=== PATIENT | male | born 1975 | race Caucasian/White ===

== ENCOUNTER 2018-08-18 22:53 | Emergency (ER) | payer OTHER ==
[~2018-08-18] VITALS: Ht 195.6 cm; Wt 122.5 kg
[~2018-08-18 22:53] MED LIST: PREDNISONE50 MG PO
[2018-08-18] MEDS ORDERED: ZYRTEC10 M5 PO (23:03)
[2018-08-18] MEDS ORDERED: GARAMYCIN5 ML OPHTHALMIC (23:33)
[2018-08-18 23:39] VITALS: BP 134/92
== END 2018-08-18 23:39 | disposition home or self-care (01) ==
LOC: M.ERS 22:53
DX: H10.9 Unspecified conjunctivitis (principal); Z88.5 Allergy status to narcotic agent